=== PATIENT | female | born 1945 | race Hispanic/Latino ===

== ENCOUNTER 2016-10-04 06:54 | Day surgery (SDC) | payer MEDICARE, BC ==
[2016-09-26 09:28] VITALS: BMI 25.8
[2016-10-04] MEDS ORDERED: Propofol 10 mg/ml Inj (20 ML) ONE (08:59)
[2016-10-04] MEDS ORDERED: Lidocaine 2% Inj (20ml) ONE (08:59)
[2016-10-04] MEDS ORDERED: Sodium Chloride 0.9% 1,000 ML IV SCH (10:15)
[2016-10-04 11:06] VITALS: BP 133/58; PULSE 57; RESP 18; TEMP 97.7; O2SAT 95
== END 2016-10-04 12:05 | disposition home or self-care (01) ==
LOC: ENDO 06:54
PROVIDERS: ATTEND Internal Medicine Gastroenterology
DX: K51.90 Ulcerative colitis, unspecified, without complications (principal); K22.70 Barrett's esophagus without dysplasia; E78.5 Hyperlipidemia, unspecified; I10 Essential (primary) hypertension; K63.5 Polyp of colon; K29.50 Unspecified chronic gastritis without bleeding; K31.7 Polyp of stomach and duodenum; K44.9 Diaphragmatic hernia without obstruction or gangrene; K57.30 Diverticulosis of large intestine without perforation or abscess without bleeding; K64.8 Other hemorrhoids
CPT/HCPCS: 43239; 45380; 88305; 88312; 88342; J2704; J3010; J7040 ×2

== ENCOUNTER 2018-04-03 09:03 | Day surgery (SDC) | payer MEDICARE, BC ==
[2018-03-31 14:00] VITALS: BMI 27.6
[2018-04-03] MEDS ORDERED: Propofol 10 mg/ml Inj (20 ML) ONE (11:48)
[2018-04-03] MEDS ORDERED: Etomidate 20 mg/10ml Inj IV ONE (11:50)
[2018-04-03] MEDS ORDERED: Sodium Chloride 0.9% 1,000 ML IV SCH (12:45)
[2018-04-03 14:13] VITALS: BP 134/78; PULSE 61; RESP 16; TEMP 97.9; O2SAT 99
== END 2018-04-03 14:27 | disposition home or self-care (01) ==
LOC: ENDO 09:03
PROVIDERS: ATTEND Internal Medicine Gastroenterology
DX: K51.90 Ulcerative colitis, unspecified, without complications (principal); K63.89 Other specified diseases of intestine; K64.8 Other hemorrhoids; K31.7 Polyp of stomach and duodenum; K22.70 Barrett's esophagus without dysplasia; K44.9 Diaphragmatic hernia without obstruction or gangrene; I10 Essential (primary) hypertension
CPT/HCPCS: 43239; 45380; 88305; 88312; 88342; J2001; J2704; J3010; J7030; J7040

== ENCOUNTER 2018-07-13 12:11 | Observation (INO) | payer MEDICARE, BC ==
[2018-07-13 12:29] VITALS: BMI 25.0
[2018-07-13] MEDS ORDERED: Sodium Chloride 0.9% 1,000 ML IV STA (12:49)
--- NOTE | 2018-07-13 13:01 | ED PDOC ---
Arrival/HPI - General Time Seen by Provider: 07/13/18 12:32 Historian: Patient - History of Present Illness Narrative History of Present Illness (Text): 07/13/18 12:28 73 year old female, with past medical history of hypertension, hyperlipidemia, and CAD s/p cardiac catheterization, presents to the ED for evaluation of cough and sinus congestion since 2 days. Patient informs sick contact with who presented similar symptoms. Patient reports visiting [facility] for the presented symptoms, where she was made aware of possible A-fib and was asked come to [facility] ED for further evaluation. Patient currently informs mild palpitations but denies any chest pain or shortness of breath. Patient denies any other associated somatic complaints. Patient denies any fevers, chills, headache, dizziness, abdominal pain, nausea, vomiting, diarrhea, back pain, neck pain, or any other complaints. Patient denies any recent travel. PMD: Dr. Vogel Tire Specialist: Dr. Gaona Time/Duration: < week Symptom Onset: Gradual Symptom Course: Unchanged Activities at Onset: Light Context: Other (Referred by [facility]) Past Medical History - Provider Review Nursing Documentation Reviewed: Yes - Infectious Disease Hx of Infectious Diseases: None - Tetanus Immunization Tetanus Immunization: Unknown - Cardiac Hx Pacemaker: No - Pulmonary Hx Respiratory Disorders: No Hx Asthma: No Hx Bronchitis: No Hx Chronic Obstructive Pulmonary Disease (COPD): No Hx Emphysema: No Hx Pneumonia: No Hx Respiratory Aspiration: No Hx Respiratory Tract Infection: No Hx Sleep Apnea: No Hx Tuberculosis: No - Neurological Hx Paralysis: No - HEENT Hx HEENT Disorder: No Hx Blind: No Hx Cataracts: No Hx Deafness: No Hx Difficulty Chewing: No Hx Epistaxis: No Hx Glaucoma: No Hx Macular Degeneration: No - Renal Hx Renal Disorder: No Hx Dialysis: No Hx Kidney Stones: No Hx Neurogenic Bladder: No Hx Pyelonephritis: No Hx Renal Cancer: No Hx Renal Failure: No - Endocrine/Metabolic Hx Endocrine Disorders: No Hx Adrenal Cancer: No Hx Diabetes Insipidus: No Hx Diabetes Mellitus Type 1: No Hx Diabetes Mellitus Type 2: No Hx Hyperthyroidism: No Hx Hypothyroidism: No Hx Systemic Lupus Erythematosus: No - Hematological/Oncological Hx Blood Transfusions: Yes Hx Blood Transfusion Reaction: No - Integumentary Hx Dermatological Disorder: No Hx Basal Cell Carcinoma: No Hx Eczema: No Hx Melanoma: No Hx Psoriasis: No Hx Squamous Cell Carcinoma: No - Musculoskeletal/Rheumatological Hx Musculoskeletal Disorders: No (RHEUMATOID ARTHRITIS) - Gastrointestinal Hx Colitis: Yes (Ulcerative Colitis) Hx Constipation: Yes Hx Gastroesophageal Reflux: Yes - Genitourinary/Gynecological Hx Genitourinary Disorders: No Hx Hematuria: No Hx Incontinence: No Hx Sexually Transmitted Diseases: No Hx Urinary Tract Infection: No - Psychiatric Hx Emotional Abuse: No Hx Physical Abuse: No Hx Substance Use: No - Surgical History Hx Hysterectomy: Yes (1990) Hx Orthopedic Surgery: Yes (ORIF of right wrist, 2009) Other/Comment: 05/17/14 left hip hemiarthroplasty - Anesthesia Hx Anesthesia Reactions: No Hx Malignant Hyperthermia: No - Suicidal Assessment Feels Threatened In Home Enviroment: No Family/Social History - Physician Review Nursing Documentation Reviewed: Yes Family/Social History: Unknown Family HX Smoking Status: Never Smoked Hx Alcohol Use: No Hx Substance Use: No Hx Substance Use Treatment: No Allergies/Home Meds Allergies/Adverse Reactions: Allergies Penicillins Allergy (Verified 06/03/16 09:30) RASH Sulfa (Sulfonamide Antibiotics) Allergy (Verified 06/03/16 09:30) ANGIOEDEMA Home Medications: Home Meds Medication Instructions Recorded Confirmed RX: Aspirin [Ecotrin] 81 mg PO DAILY 05/31/16 07/14/18 RX: Atenolol [Tenormin] 25 mg PO DAILY 05/31/16 07/14/18 RX: Cholecalciferol (Vitamin D3) 2,000 unit PO DAILY 05/31/16 07/14/18 [Vitamin D3] RX: Folic Acid 1 mg PO DAILY 05/31/16 07/14/18 RX: Losartan [Cozaar] 50 mg PO DAILY 05/31/16 07/14/18 RX: Methotrexate 4 tab PO QWK 05/31/16 07/13/18 RX: Multivitamin [Multivitamins] 1 each PO DAILY 05/31/16 07/14/18 RX: Omeprazole 20 mg PO DAILY 05/31/16 07/14/18 RX: Cyanocobalamin [Vitamin B12 1,000 mcg PO DAILY 03/31/18 07/14/18 1000 mcg Tab] RX: Rosuvastatin Calcium [Crestor] 5 mg PO DAILY 03/31/18 07/13/18 Review of Systems - Physician Review All systems were reviewed & negative as marked: Yes - Review of Systems Constitutional: absent: Fevers ENT: Sinus Congestion Respiratory: Cough. absent: SOB Cardiovascular: Palpitations. absent: Chest Pain, BURRELL Gastrointestinal: absent: Abdominal Pain, Diarrhea, Nausea, Vomiting Genitourinary Female: absent: Dysuria, Hematuria Musculoskeletal: absent: Back Pain, Neck Pain Skin: absent: Rash Neurological: absent: Headache, Dizziness Physical Exam Vital Signs Reviewed: Yes Vital Signs Temp Pulse Resp BP Pulse Ox 07/13/18 12:28 98.4 F 109 H 18 182/109 H 98 Temperature: Afebrile Blood Pressure: Hypertensive Pulse: Tachycardic Respiratory Rate: Normal Appearance: Positive for: Well-Appearing, Non-Toxic, Comfortable Pain Distress: None Mental Status: Positive for: Alert and Oriented X 3 - Systems Exam Head: Present: Atraumatic, Normocephalic Pupils: Present: PERRL Extroacular Muscles: Present: EOMI Conjunctiva: Present: Normal Respiratory/Chest: Present: Clear to Auscultation, Good Air Exchange. No: Respiratory Distress, Accessory Muscle Use Cardiovascular: Present: Normal S1, S2, Irregular Rhythm (Irregularly irregular rhythm), Tachycardic. No: Murmurs Abdomen: No: Tenderness, Distention, Peritoneal Signs Upper Extremity: Present: Normal Inspection. No: Cyanosis, Edema Lower Extremity: Present: Normal Inspection. No: Edema Neurological: Present: GCS=15, CN II-XII Intact, Speech Normal Skin: Present: Warm, Dry, Normal Color. No: Rashes Psychiatric: Present: Alert, Oriented x 3, Normal Insight, Normal Concentration Medical Decision Making ED Course and Treatment: 07/13/18 12:48 Impression: 73 year old female presents to the ED for evaluation of cough, sinus congestion and palpitations. Plan: -- EKG -- Labs -- Chest X-ray -- IV Fluids -- Reassess and disposition Prior Visits: Notes and results from previous visits were reviewed. Progress Notes: 07/13/18 13:00 EKG: Ordered, reviewed, and independently interpreted the EKG. Rate : 109 BPM Rhythm : Sinus Tachycardia Interpretation : No ST-segment elevations, frequent PACs, non-specific ST/T wave changes. 07/13/18 15:08 Vital signs improved with blood pressure of 155/77 and HR of 63. Labs reviewed, shows elevated BNP at 1530. Patient denies any fever. Patient will be admitted to the hospital for observation. Patient is aware and agrees with plan. Discussed case with Dr. Layne, who is aware and agrees with ED management plan, accepts patient under his service. 07/13/18 16:07 Chest X-ray reviewed by radiologist, shows no active disease. - RAD Interpretation Radiology Orders: 07/13/18 12:49 CHEST PORTABLE [RAD] Stat Manager Technical Sales: Radiologist - EKG Interpretation Interpreted by ED Physician: Yes Type: 12 lead EKG - Medication Orders Current Medication Orders: Sodium Chloride (Sodium Chloride 0.9%) 1,000 mls @ 999 mls/hr IV .Q1H1M STA Stop: 07/13/18 13:49 - Scribe Statement The provider has reviewed the documentation as recorded by the Scribe Ramonita Broussard. All medical record entries made by the Scribe were at my direction and personally dictated by me. I have reviewed the chart and agree that the record accurately reflects my personal performance of the history, physical exam, medical decision making, and the department course for this patient. I have also personally directed, reviewed, and agree with the discharge instructions and disposition. Disposition/Present on Arrival - Present on Arrival Any Indicators Present on Arrival: No History of DVT/PE: No History of Uncontrolled Diabetes: No Urinary Catheter: No History Surgical Site Infection Following: None - Disposition Have Diagnosis and Disposition been Completed?: Yes Diagnosis: Heart palpitations, Irregular cardiac rhythm Disposition: HOSPITALIZED Disposition Time: 15:08 Patient Plan: Admission, Telemetry Condition: GOOD
[2018-07-13 13:24] LABS: BASO # 0.04 K/mm3 (0.0-2.0); BASO % 0.7 % (0.0-3.0); EOS # 0.1 (0.0-0.7); EOS % 1.5 % (1.5-5.0); GRAN # 4.25 (1.4-6.5); GRAN % 72.8 % (50.0-68.0); HEMOGLOBIN 12.2 g/dL (12.0-16.0); LYMPH # 0.9 (1.2-3.4); LYMPH % 15.6 % (22.0-35.0); MEAN CELL VOLUME 93.4 fl (80.0-105.0); MEAN CORPUSCULAR HEMOGLOBIN 29.8 pg (25.0-35.0); MEAN CORPUSCULAR HGB CONC 31.9 g/dl (31.0-37.0); MEAN PLATELET VOLUME 9.7 fl (7.0-11.0); MONO # 0.6 (0.1-0.6); MONO % 9.4 % (1.0-6.0); RBC 4.1 10^6/uL (3.5-6.1); RED CELL DISTRIBUTION WIDTH 14.7 % (11.5-14.5); WHITE BLOOD COUNT 5.8 10^3/uL (4.5-11.0)
[2018-07-13 13:32] LABS: INR 1.03; PARTIAL THROMBOPLASTIN TIME 28.9 Seconds (25.1-36.5); PROTHROMBIN TIME 11.8 SECONDS (9.4-12.5)
[2018-07-13 13:39] LABS: ALB/GLOB RATIO 1.4 (1.1-1.8); ALBUMIN 4.1 g/dL (3.0-4.8); ALT/SGPT 24 U/L (7-56); AST/SGOT 22 U/L (14-36); BLOOD UREA NITROGEN 14 mg/dL (7-21); CALCIUM 9.3 mg/dL (8.4-10.5); GFR NON-AFRICAN AMERICAN > 60
[2018-07-13 13:51] LABS: B-TYPE NATRIURETIC PEPTIDE 1530 pg/mL (0-450); TROPONIN I < 0.01 ng/mL
--- NOTE | 2018-07-13 14:06 | RAD ---
Date of service: 07/13/2018 HISTORY: palpitations COMPARISON: 05/15/2014 FINDINGS: LUNGS: No active pulmonary disease. PLEURA: No significant pleural effusion identified, no pneumothorax apparent. CARDIOVASCULAR: No aortic atherosclerotic calcification present. Normal cardiac size. No pulmonary vascular congestion. OSSEOUS STRUCTURES: No significant abnormalities. VISUALIZED UPPER ABDOMEN: Normal. OTHER FINDINGS: None. IMPRESSION: No active disease.
--- NOTE | 2018-07-13 16:01 | CP.PCM.HP ---
<Lois Jeter - Last Filed: 07/13/18 16:13> History of Present Illness - History of Present Illness History of Present Illness: Internal Medicine H&P for Dr. Schneider Patient si a 73 yr old female with past medical history of HTN, HLD, CAD s/p cath, GERD, Tony's esophagus, RA and UC (in remission) who presents to [facility] after being referred from urgent care for Afib. patient had gone to urgent care for cough/cold/congestion symptoms x 2 days. Patient states she has experienced fever close to 101, congestion, SARKAR, rhinorrhea and nonproductive cough. She denies any sore throat, ear pain, Chest pain, SOB, abdominal pain, diarrhea, constipation, dysuria and extremity pain/ weakness. Last endoscopy and colonoscopy in March normal as per patient. Last Echo unknown PMH: HTN, HLD, CAD, RA, GERD, UC PSH: right wrist surgerym left hip replacement Social:denies smoking, etoh and drugs ALL: PCN, sulfa Family Hx: Father; lung Cancer, mother breast cancer Home medications: Omeprazole 20 mg daily, Atenolol 25 mg daily, Losartan 50 mg daily, Crestor 5 mg Daily, ASA 81 mg, Vit D3, Folic acid 1 mg, B12, Methotrexate 10 mg once weekly on Sundays Slab Lifting Supervisor : Candelaria GI: Papi Present on Admission - Present on Admission Any Indicators Present on Admission: No Review of Systems - Review of Systems All systems: reviewed and no additional remarkable complaints except (as per HPI) Past Patient History - Infectious Disease Hx of Infectious Diseases: None - Tetanus Immunizations Tetanus Immunization: Unknown - Past Medical History & Family History Past Medical History?: Yes - Past Social History Smoking Status: Never Smoked - CARDIAC Hx Pacemaker: No - PULMONARY Hx Respiratory Disorders: No Hx Asthma: No Hx Bronchitis: No Hx Chronic Obstructive Pulmonary Disease (COPD): No Hx Emphysema: No Hx Pneumonia: No Hx Respiratory Aspiration: No Hx Respiratory Tract Infection: No Hx Sleep Apnea: No Hx Tuberculosis: No - NEUROLOGICAL Hx Paralysis: No - HEENT Hx HEENT Problems: No Hx Blind: No Hx Cataracts: No Hx Deafness: No Hx Difficulty Chewing: No Hx Epistaxis: No Hx Glaucoma: No Hx Macular Degeneration: No - RENAL Hx Chronic Kidney Disease: No Hx Dialysis: No Hx Kidney Stones: No Hx Neurogenic Bladder: No Hx Pyelonephritis: No Hx Renal (Kidney) Cancer: No Hx Renal Failure: No - ENDOCRINE/METABOLIC Hx Endocrine Disorders: No Hx Adrenal Cancer: No Hx Diabetes Insipidus: No Hx Diabetes Mellitus Type 1: No Hx Diabetes Mellitus Type 2: No Hx Hyperthyroidism: No Hx Hypothyroidism: No Hx Systemic Lupus Erythematosus: No - HEMATOLOGICAL/ONCOLOGICAL Hx Blood Transfusions: Yes Hx Blood Transfusion Reaction: No - INTEGUMENTARY Hx Dermatological Problems: No Hx Basil Cell: No Hx Eczema: No Hx Melanoma: No Hx Psoriasis: No Hx Squamous Cell: No - MUSCULOSKELETAL/RHEUMATOLOGICAL Hx Musculoskeletal Disorders: No (RHEUMATOID ARTHRITIS) - GASTROINTESTINAL Hx Colitis: Yes (Ulcerative Colitis) Hx Constipation: Yes Hx Gastroesophageal Reflux: Yes - GENITOURINARY/GYNECOLOGICAL Hx Genitourinary Disorders: No Hx Hematuria: No Hx Incontinence: No Hx Sexually Transmitted Disorders: No Hx Urinary Tract Infection: No - PSYCHIATRIC Hx Emotional Abuse: No Hx Physical Abuse: No Hx Substance Use: No - SURGICAL HISTORY Hx Hysterectomy: Yes (1990) Hx Orthopedic Surgery: Yes (ORIF of right wrist, 2009) Other/Comment: 05/17/14 left hip hemiarthroplasty - ANESTHESIA Hx Anesthesia Reactions: No Hx Malignant Hyperthermia: No Meds Allergies/Adverse Reactions: Allergies Allergy/AdvReac Type Severity Reaction Status Date / Time Penicillins Allergy RASH Verified 06/03/16 09:30 Sulfa (Sulfonamide Allergy ANGIOEDEMA Verified 06/03/16 09:30 Antibiotics) Physical Exam - Constitutional Appears: Well, Non-toxic, No Acute Distress - Head Exam Head Exam: ATRAUMATIC, NORMOCEPHALIC - Eye Exam Eye Exam: EOMI - ENT Exam ENT Exam: Mucous Membranes Moist - Respiratory Exam Respiratory Exam: Clear to Auscultation Bilateral, NORMAL BREATHING PATTERN. absent: Accessory Muscle Use, Respiratory Distress - Cardiovascular Exam Cardiovascular Exam: REGULAR RHYTHM. absent: Tachycardia, Irregular Rhythm - GI/Abdominal Exam GI & Abdominal Exam: Soft. absent: Distended, Guarding, Rebound, Rigid, Tenderness - Extremities Exam Extremities exam: Negative for: calf tenderness, pedal edema - Neurological Exam Neurological exam: Alert, Oriented x3 - Psychiatric Exam Psychiatric exam: Normal Affect, Normal Mood - Skin Skin Exam: Dry, Intact, Normal Color, Warm Results - Vital Signs Recent Vital Signs: Last Vital Signs Temp 98.4 F 07/13/18 12:28 Pulse 109 H 07/13/18 12:28 Resp 16 07/13/18 13:40 BP 155/77 H 07/13/18 13:40 Pulse Ox 98 07/13/18 13:40 - Labs Result Diagrams: 07/13/18 13:00 07/13/18 13:00 Labs: Laboratory Results - last 24 hr 07/13/18 07/13/18 07/13/18 13:00 13:00 13:00 WBC 5.8 RBC 4.10 Hgb 12.2 Hct 38.3 MCV 93.4 D MCH 29.8 MCHC 31.9 RDW 14.7 H Plt Count 192 MPV 9.7 Gran % 72.8 H Lymph % (Auto) 15.6 L Cross % (Auto) 9.4 H Eos % (Auto) 1.5 Baso % (Auto) 0.7 Gran # 4.25 Lymph # (Auto) 0.9 L Cross # (Auto) 0.6 Eos # (Auto) 0.1 Baso # (Auto) 0.04 PT 11.8 INR 1.03 APTT 28.9 Sodium 135 Potassium 4.2 Chloride 103 Carbon Dioxide 26 Anion Gap 11 BUN 14 Creatinine 0.8 Est GFR ( Amer) > 60 Est GFR (Non-Af Amer) > 60 Random Glucose 95 Calcium 9.3 Magnesium 1.9 Total Bilirubin 0.6 AST 22 ALT 24 Alkaline Phosphatase 80 Lactate Dehydrogenase 451 Total Creatine Kinase 83 Troponin I < 0.01 NT-Pro-B Natriuret Pep 1530 H Total Protein 7.1 Albumin 4.1 Globulin 3.0 Albumin/Globulin Ratio 1.4 TSH 3rd Generation 07/13/18 13:00 WBC RBC Hgb Hct MCV MCH MCHC RDW Plt Count MPV Gran % Lymph % (Auto) Cross % (Auto) Eos % (Auto) Baso % (Auto) Gran # Lymph # (Auto) Cross # (Auto) Eos # (Auto) Baso # (Auto) PT INR APTT Sodium Potassium Chloride Carbon Dioxide Anion Gap BUN Creatinine Est GFR ( Amer) Est GFR (Non-Af Amer) Random Glucose Calcium Magnesium Total Bilirubin AST ALT Alkaline Phosphatase Lactate Dehydrogenase Total Creatine Kinase Troponin I NT-Pro-B Natriuret Pep Total Protein Albumin Globulin Albumin/Globulin Ratio TSH 3rd Generation 1.75 Assessment & Plan - Assessment and Plan (Free Text) Assessment: 73 yr old female admitted for abservation after episode of afib at urgent care, and current cough/congestion; CXR negative for pneumonia Plan: Afib - irregular rhythm on EKG but no Afib - elevated BNP possibly 2/2 afib - Consult Cardiology, Dr. Gaona, recs appreciated - Troponins x 3 will f/u - repeat EKG in AM - admit to tele Cough/ Congestion - Procal, will f/u - ocean mist/ saline nasal spray PRN - flu swab, will f/u - no leukocytosis of fever at this time will repeat CBC in am HTN - continue home atenolol and losartan with holding parameters - will continue to monitor HLD - c/w home lipitor - lipid panel, will f/u CAD - no CP at this time - trops d/t afib - c/w home ASA - cardiology consulted recs appreciated GERD - c/w home omeprazole - will continue to monitor PPX: on omeprazole at home, SCD, lovenox Patient seen and examined with Dr. Danilo Jeter, PGY 1 - Date & Time Date: 07/13/18 Time: 15:35 Decision To Admit - Pt Status Changed To: Hospital Disposition Of: Observation - . Bed Request Type: Telemetry Admitting Physician: Noelle Schneider <Noelle Schneider - Last Filed: 07/14/18 07:33> Results - Vital Signs Recent Vital Signs: Last Vital Signs Temp 98.9 F 07/14/18 05:58 Pulse 77 07/14/18 05:58 Resp 20 07/14/18 05:58 BP 145/78 07/14/18 05:58 Pulse Ox 96 07/14/18 05:58 - Labs Result Diagrams: 07/14/18 05:00 07/13/18 13:00 Labs: Laboratory Results - last 24 hr 07/13/18 07/13/18 07/13/18 13:00 13:00 13:00 WBC 5.8 RBC 4.10 Hgb 12.2 Hct 38.3 MCV 93.4 D MCH 29.8 MCHC 31.9 RDW 14.7 H Plt Count 192 MPV 9.7 Gran % 72.8 H Lymph % (Auto) 15.6 L Cross % (Auto) 9.4 H Eos % (Auto) 1.5 Baso % (Auto) 0.7 Gran # 4.25 Lymph # (Auto) 0.9 L Cross # (Auto) 0.6 Eos # (Auto) 0.1 Baso # (Auto) 0.04 PT 11.8 INR 1.03 APTT 28.9 Sodium 135 Potassium 4.2 Chloride 103 Carbon Dioxide 26 Anion Gap 11 BUN 14 Creatinine 0.8 Est GFR ( Amer) > 60 Est GFR (Non-Af Amer) > 60 Random Glucose 95 Calcium 9.3 Magnesium 1.9 Total Bilirubin 0.6 AST 22 ALT 24 Alkaline Phosphatase 80 Lactate Dehydrogenase 451 Total Creatine Kinase 83 Troponin I < 0.01 NT-Pro-B Natriuret Pep 1530 H Total Protein 7.1 Albumin 4.1 Globulin 3.0 Albumin/Globulin Ratio 1.4 Triglycerides Cholesterol LDL Cholesterol Direct HDL Cholesterol TSH 3rd Generation Influenza Typ A,B (EIA) 07/13/18 07/13/18 07/13/18 13:00 15:50 19:36 WBC RBC Hgb Hct MCV MCH MCHC RDW Plt Count MPV Gran % Lymph % (Auto) Cross % (Auto) Eos % (Auto) Baso % (Auto) Gran # Lymph # (Auto) Cross # (Auto) Eos # (Auto) Baso # (Auto) PT INR APTT Sodium Potassium Chloride Carbon Dioxide Anion Gap BUN Creatinine Est GFR ( Amer) Est GFR (Non-Af Amer) Random Glucose Calcium Magnesium Total Bilirubin AST ALT Alkaline Phosphatase Lactate Dehydrogenase Total Creatine Kinase Troponin I < 0.01 NT-Pro-B Natriuret Pep Total Protein Albumin Globulin Albumin/Globulin Ratio Triglycerides Cholesterol LDL Cholesterol Direct HDL Cholesterol TSH 3rd Generation 1.75 Influenza Typ A,B (EIA) Negative for flu a/b 07/14/18 07/14/18 07/14/18 01:30 05:00 05:00 WBC 5.9 RBC 3.72 Hgb 11.1 L Hct 34.5 L MCV 92.7 MCH 29.8 MCHC 32.2 RDW 14.6 H Plt Count 204 MPV 10.2 Gran % 68.0 Lymph % (Auto) 20.9 L Cross % (Auto) 9.6 H Eos % (Auto) 1.0 L Baso % (Auto) 0.5 Gran # 3.98 Lymph # (Auto) 1.2 Cross # (Auto) 0.6 Eos # (Auto) 0.1 Baso # (Auto) 0.03 PT INR APTT Sodium Potassium Chloride Carbon Dioxide Anion Gap BUN Creatinine Est GFR ( Amer) Est GFR (Non-Af Amer) Random Glucose Calcium Magnesium Total Bilirubin AST ALT Alkaline Phosphatase Lactate Dehydrogenase Total Creatine Kinase Troponin I 0.02 D NT-Pro-B Natriuret Pep Total Protein Albumin Globulin Albumin/Globulin Ratio Triglycerides 107 Cholesterol 165 LDL Cholesterol Direct 99 HDL Cholesterol 43 TSH 3rd Generation Influenza Typ A,B (EIA) Attending/Attestation - Attestation I have personally seen and examined this patient.: Yes I have fully participated in the care of the patient.: Yes I have reviewed all pertinent clinical information: Yes Notes (Text): Patient seen and examined by me with resident at 7:45AM on 07/13/18. Case including HPI, physical exam, and assessment and plan discussed with resident. Agree with above with following additions/corrections. Patient is a 73-year-old female past medical history significant for hypertension, hyperlipidemia, GERD, coronary artery disease, Hirsch's esophagus, rheumatoid arthritis, and colitis that presented to the emergency room after being sent in from urgent care for atrial fibrillation on an EKG. Patient states that she went to urgent care secondary to nasal/sinus congestion. She states that the congestion started on 07/11/2018. Patient states that at that time she had a fever close to 101 and body aches. She took Tylenol with improvement. She states that she also has had a nonproductive cough. Patient states that the body aches and fever have resolved and she only has nasal congestion now. She states that when she blows her nose the drainage is clear. Patient states that she regularly follows coal passer Dr. Feng. She denies any recent cardiac issues. Patient denies any chest pain or palpitations. No shortness of breath. No nausea, vomiting, or abdominal pain. No fevers or chills. No headaches or dizziness. No lightheadedness or change in vision. No dysuria. No diarrhea or constipation. 12 point review of systems reviewed by me. Please see above HPI, all other systems negative. Family History. Mother passed of metastatic breast cancer. Father passed of lung cancer Physical exam: General: Awake and alert sitting up in bed in no acute distress HEENT: Normocephalic, atraumatic. Extraocular muscles intact, pupils equal and reactive, no scleral icterus. Oropharynx is pink and moist. Positive nasal turbinate edema. No pharyngeal erythema or exudate appreciated. Neck is supple. Hearing grossly intact. Ears and nose externally unremarkable. Cardiovascular: Irregular rhythm.Normal S1 and S2. No murmurs, rubs, or gallops appreciated Pulmonary: Normal respiratory effort. Decreased breath sounds. Mild rales at bases (patient s/p Lasix 80mg). No rhonchi or wheezing appreciated. Gastrointestinal: Soft, nondistended. Nontender. Positive bowel sounds all 4 quadrants. No guarding. Musculoskeletal: Moves all extremities. No calf tenderness. No edema appreciated. No CVA tenderness. Central nervous system: AAOx 3, CN 2-12 grossly intact. 5/5 muscle strength all extremities. Dermatologic: Skin warm and dry. Assessment and plan: Patient is a 73-year-old female past medical history significant for hypertension, hyperlipidemia, GERD, coronary artery disease, Hirsch's esophagus, rheumatoid arthritis, and colitis that presented to the emergency room after being sent in from urgent care for atrial fibrillation on an EKG. 1. Arrhythmia on EKG. Patient asymptomatic. Per patient, she had atrial fibril lation at urgent care. 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 Cardiology consulted, follow up recommendations. BNP elevated at 1530. Chest xray as read by me shows no active disease. Follow up serial troponins. Continue ASA. TSH within normal limits. Monitor on telemetry. 2. URI. Patient afebrile, no leukocytosis. Will given saline nasal spray. Influenza negative. Will hold off on any antibiotics. 3. Essential hypertension. Continue home Cozaar and atenolol 4. CAD. No chest pain. Follow up serial troponins. Continue home Cozaar, atenolol, and ASA. Patient on Crestor at home, placed on lipitor here. 6. Hyperlipidemia. Patient on Crestor at home, placed on lipitor here. 7. GERD/Hirsch's esophagus. Patient on omeprazole at home. Placed on protonix here. 8. GI/DVT prophylaxis. Protonix/Lovenox 9. Patient is a full code. Case discussed in detail with patient regarding current diagnosis and treament plan. All questions answered.
--- NOTE | 2018-07-13 16:55 | CARD ---
APPROVED REPORT Date of service: 07/13/2018 EKG Measurement Heart [id number] <Conclusion> Sinus tachycardia with premature atrial complexes Nonspecific ST abnormality Abnormal ECG
[2018-07-13] MEDS ORDERED: Pneumococcal 23-Valent Vaccine IM ONE (22:28)
[2018-07-13] MEDS ORDERED: Influenza Vaccine 60 mcg/0.5 mL SYR (4YR UP) IM ONE (22:28)
[2018-07-13 23:10] VITALS: RESP 20
[2018-07-14 05:53] LABS: BASO # 0.03 K/mm3 (0.0-2.0); BASO % 0.5 % (0.0-3.0); EOS # 0.1 (0.0-0.7); GRAN # 3.98 (1.4-6.5); HEMOGLOBIN 11.1 g/dL (12.0-16.0); LYMPH # 1.2 (1.2-3.4); LYMPH % 20.9 % (22.0-35.0); MEAN CELL VOLUME 92.7 fl (80.0-105.0); MEAN CORPUSCULAR HEMOGLOBIN 29.8 pg (25.0-35.0); MEAN CORPUSCULAR HGB CONC 32.2 g/dl (31.0-37.0); MEAN PLATELET VOLUME 10.2 fl (7.0-11.0); MONO # 0.6 (0.1-0.6); MONO % 9.6 % (1.0-6.0); RBC 3.72 10^6/uL (3.5-6.1); RED CELL DISTRIBUTION WIDTH 14.6 % (11.5-14.5); WHITE BLOOD COUNT 5.9 10^3/uL (4.5-11.0)
[2018-07-14 05:56] LABS: HDL CHOLESTEROL 43 mg/dL (29-60)
[2018-07-14 05:59] VITALS: O2SAT 96
[2018-07-14 06:06] LABS: LDL CHOLESTEROL 99 mg/dL (0-129)
[2018-07-14 07:59] LABS: ALB/GLOB RATIO 1.3 (1.1-1.8); ALBUMIN 3.9 g/dL (3.0-4.8); ALT/SGPT 25 U/L (7-56); AST/SGOT 35 U/L (14-36); BLOOD UREA NITROGEN 15 mg/dL (7-21); CALCIUM 8.8 mg/dL (8.4-10.5); GFR NON-AFRICAN AMERICAN > 60
[2018-07-14] MEDS ORDERED: Pantoprazole 40 mg EC Tab PO SCH (10:00)
[2018-07-14] MEDS ORDERED: Multivitamin Therapeutic Tab PO SCH (10:00)
[2018-07-14] MEDS ORDERED: Enoxaparin 40 mg Syringe SC SCH (10:00)
[2018-07-14] MEDS ORDERED: Cholecalciferol 1,000 INTLU TAB PO SCH (10:00)
--- NOTE | 2018-07-14 10:33 | CARD ---
APPROVED REPORT Date of service: 07/14/2018 EKG Measurement Heart [id number] ID [id number] <Conclusion> Normal sinus rhythm Normal ECG
[2018-07-14 11:51] VITALS: BP 112/68; PULSE 52; TEMP 97.9
--- NOTE | 2018-07-14 13:01 | CON ---
DATE: 07/14/2018 SUBJECTIVE: The patient is seen lying in bed on telemetry. She went to [facility] yesterday with complaints of nasal congestion. An electrocardiogram was performed there and she was told at that time she had atrial fibrillation and needed to go to the emergency room for admission and treatment. She did feel that she had intermittent palpitations for several prior days associated with her cough and nasal congestion. In the emergency room, she was in sinus rhythm with frequent supraventricular premature beats. Review of the electrocardiogram from [facility] revealed the same. She has no prior history of atrial fibrillation. She does have known coronary artery disease of moderate severity, managed medically. She also has a history of hypertension and hyperlipidemia. PAST MEDICAL HISTORY: Notable for the problems mentioned above. She underwent left hip surgery in 2013 as well as repair of her right wrist fracture in 2009. She does have a history of rheumatoid arthritis. MEDICATIONS AT HOME: Included aspirin, atenolol 25 mg daily, Cozaar 50 mg daily, methotrexate, omeprazole, and Crestor 5 mg daily. ALLERGIES: SHE HAD A REACTION TO PENICILLIN WELL SULFAS IN THE PAST. SOCIAL HISTORY: She does not smoke or drink. She is a retired nurse. FAMILY HISTORY: Both parents from age-related illness. REVIEW OF SYSTEMS: A 10-point review of systems is otherwise unremarkable. PHYSICAL EXAMINATION GENERAL: She is a middle-aged woman, who appears comfortable at present time. VITAL SIGNS: Her blood pressure is 146/76 with pulse 72 and sinus, respirations are 16. She is afebrile. HEENT: Normocephalic, atraumatic. NECK: Supple. No JVD noted. CHEST: Few scattered rhonchi heard. No rales heard. HEART: PMI in normal position. No pathologic murmurs or gallops noted. ABDOMEN: Soft, nontender with normoactive bowel sounds. EXTREMITIES: No clubbing, cyanosis or edema. SKIN: Warm and dry. PSYCHIATRIC: Normal mood and affect.. NEUROLOGICAL: Alert and oriented x3. No gross motor or sensory deficits noted. DIAGNOSTIC DATA: Potassium is 4.3, BUN and creatinine 15 and 0.8. White count is 5.9, hemoglobin and hematocrit 11.1 and 34.5 with platelet count 204,000. Three sets of cardiac enzymes were drawn and are negative. Influenza serology was negative. Electrocardiogram reveals sinus rhythm with frequent supraventricular premature beats and nonspecific ST-T abnormalities. Chest x-ray was unremarkable. IMPRESSION 1. Palpitations secondary to frequent supraventricular premature beats. No evidence of atrial fibrillation has been documented. Ectopy likely precipitated by respiratory illness. 2. Sinusitis/bronchitis. 3. Coronary artery disease, clinically stable. 4. Rest of the problems as noted. RECOMMENDATIONS: From cardiac standpoint, she is stable for discharge home at this time. No further change in the cardiac medications is recommended. There is no role for anticoagulation at this time. She will follow up in the office or for followup as needed. Thank you for this consultation. Pedrito Gaona MD
--- NOTE | 2018-07-14 14:40 | CP.PCM.DIS ---
Provider - Provider Date of Admission: 07/13/18 15:13 Attending physician: Noelle Schneider DO Primary care physician: Raman Vogel MD Consults: 07/13/18 15:25 Cardiology Consult Routine Comment: Consulting Provider: Pedrito Gaona Consulting Physician: Pedrito Gaona Reason for Consult: irregular rhythm; patient known to you 07/13/18 22:13 Social Work Referral Routine Comment: palpitations Physician Instructions: Reason For Exam: eval Time Spent in preparation of Discharge (in minutes): 45 Diagnosis - Discharge Diagnosis (1) Cough Status: Acute (2) Viral URI Status: Acute (3) PVCs (premature ventricular contractions) Status: Acute (4) Heart palpitations Status: Acute Hospital Course - Lab Results Lab Results: Most Recent Lab Values WBC 5.9 10^3/uL (4.5-11.0) 07/14/18 05:00 RBC 3.72 10^6/uL (3.5-6.1) 07/14/18 05:00 Hgb 11.1 g/dL (12.0-16.0) L 07/14/18 05:00 Hct 34.5 % (36.0-48.0) L 07/14/18 05:00 MCV 92.7 fl (80.0-105.0) 07/14/18 05:00 MCH 29.8 pg (25.0-35.0) 07/14/18 05:00 MCHC 32.2 g/dl (31.0-37.0) 07/14/18 05:00 RDW 14.6 % (11.5-14.5) H 07/14/18 05:00 Plt Count 204 10^3/uL (120.0-450.0) 07/14/18 05:00 MPV 10.2 fl (7.0-11.0) 07/14/18 05:00 Gran % 68.0 % (50.0-68.0) 07/14/18 05:00 Lymph % (Auto) 20.9 % (22.0-35.0) L 07/14/18 05:00 [place] % (Auto) 9.6 % (1.0-6.0) H 07/14/18 05:00 Eos % (Auto) 1.0 % (1.5-5.0) L 07/14/18 05:00 Baso % (Auto) 0.5 % (0.0-3.0) 07/14/18 05:00 Gran # 3.98 (1.4-6.5) 07/14/18 05:00 Lymph # (Auto) 1.2 (1.2-3.4) 07/14/18 05:00 [place] # (Auto) 0.6 (0.1-0.6) 07/14/18 05:00 Eos # (Auto) 0.1 (0.0-0.7) 07/14/18 05:00 Baso # (Auto) 0.03 K/mm3 (0.0-2.0) 07/14/18 05:00 PT 11.8 SECONDS (9.4-12.5) 07/13/18 13:00 INR 1.03 07/13/18 13:00 APTT 28.9 Seconds (25.1-36.5) 07/13/18 13:00 Sodium 135 mmol/L (132-148) 07/14/18 06:00 Potassium 4.3 mmol/L (3.6-5.0) 07/14/18 06:00 Chloride 102 mmol/L (98-107) 07/14/18 06:00 Carbon Dioxide 24 mmol/L (21-33) 07/14/18 06:00 Anion Gap 14 (10-20) 07/14/18 06:00 BUN 15 mg/dL (7-21) 07/14/18 06:00 Creatinine 0.8 mg/dl (0.7-1.2) 07/14/18 06:00 Est GFR ( Amer) > 60 07/14/18 06:00 Est GFR (Non-Af Amer) > 60 07/14/18 06:00 Random Glucose 82 mg/dL (70-110) 07/14/18 06:00 Calcium 8.8 mg/dL (8.4-10.5) 07/14/18 06:00 Magnesium 1.9 mg/dL (1.7-2.2) 07/13/18 13:00 Total Bilirubin 0.6 mg/dL (0.2-1.3) 07/14/18 06:00 AST 35 U/L (14-36) 07/14/18 06:00 ALT 25 U/L (7-56) 07/14/18 06:00 Alkaline Phosphatase 67 U/L (38-126) 07/14/18 06:00 Lactate Dehydrogenase 451 U/L (333-699) 07/13/18 13:00 Total Creatine Kinase 83 U/L (35-230) 07/13/18 13:00 Troponin I 0.02 ng/mL D 07/14/18 01:30 NT-Pro-B Natriuret Pep 1530 pg/mL (0-450) H 07/13/18 13:00 Total Protein 6.9 g/dL (5.8-8.3) 07/14/18 06:00 Albumin 3.9 g/dL (3.0-4.8) 07/14/18 06:00 Globulin 3.0 gm/dL 07/14/18 06:00 Albumin/Globulin Ratio 1.3 (1.1-1.8) 07/14/18 06:00 Triglycerides 107 mg/dL (35-160) 07/14/18 05:00 Cholesterol 165 mg/dL (130-200) 07/14/18 05:00 LDL Cholesterol Direct 99 mg/dL (0-129) 07/14/18 05:00 HDL Cholesterol 43 mg/dL (29-60) 07/14/18 05:00 TSH 3rd Generation 1.75 mIU/mL (0.46-4.68) 07/13/18 13:00 Influenza Typ A,B (EIA) Negative for flu a/b (NEGATIVE) 07/13/18 15:50 - Hospital Course Hospital Course: HPI at time of admission: "73 yr old female with past medical history of HTN, HLD, CAD s/p cath, GERD, Hirsch's esophagus, RA and UC (in remission) who presents to [facility] after being referred from urgent care for Afib. patient had gone to urgent care for cough/cold/congestion symptoms x 2 days. Patient states she has experienced fever close to 101, congestion, SARKAR, rhinorrhea and nonproductive cough. She denies any sore throat, ear pain, Chest pain, SOB, abdominal pain, diarrhea, constipation, dysuria and extremity pain/ weakness. Last endoscopy and colonoscopy in March normal as per patient. Last Echo unknown." Hospital Course: Pertinent imaging: EKG 07/13: sinus tachy with premature atrial complexes EKG 07/14: normal sinus rhythm CXR 07/13: no active disease Pt was admitted for observation of irregular rhythm, likely 2/[address] Gaona (Cardio) was consulted, who recommended outpatient f/u for further work-up of irregular rhythm/palpitations. Trops neg x3. Pt was also c/o cold-like symptoms, likely 2/2 viral URI, pt instructed to use supportive measures. Given script of Flonase to c/w outpatient as needed for nasal congestion. Pt was discharged to home in stable condition on 07/14/18. Instructed to f/u with PMD Dr. Vogel within 3-5 days of discharge. Instructed to resume home medications as prescribed. For further details of hospitalization, please refer to hospital EMR. Discharge Exam - Head Exam Head Exam: ATRAUMATIC, NORMOCEPHALIC - Eye Exam Eye Exam: EOMI, Normal appearance, PERRL - ENT Exam ENT Exam: Mucous Membranes Moist - Respiratory Exam Respiratory Exam: Clear to PA & Lateral, NORMAL BREATHING PATTERN, UNREMARKABLE. absent: Rales, Rhonchi, Wheezes - Cardiovascular Exam Cardiovascular Exam: REGULAR RHYTHM, +S1, +S2. absent: Gallop, Rubs, Systolic Murmur - GI/Abdominal Exam GI & Abdominal Exam: Normal Bowel Sounds, Soft, Unremarkable. absent: Distended, Tenderness - Extremities Exam Extremities exam: full ROM, normal capillary refill, normal inspection, pedal pulses present - Neurological Exam Neurological exam: Alert, CN II-XII Intact, Normal Gait, Oriented x3, Reflexes Normal - Psychiatric Exam Psychiatric exam: Normal Affect, Normal Mood - Skin Skin Exam: Dry, Intact, Normal Color, Warm Discharge Plan - Discharge Medications Prescriptions: Fluticasone Nasal [Flonase] 1 actuation NS DAILY #1 spr - Follow Up Plan Condition: GOOD Disposition: HOME/ ROUTINE Instructions: Arrhythmias (DC), High Blood Pressure (DC), Cough, Runny Nose, and the Common Cold (DC), High Cholesterol (DC), Palpitations (DC) Additional Instructions: Please follow-up with your primary care physician (Dr. Vogel) within 3-5 days after hospital discharge. Please follow-up with Dr. Gaona (Cardiology) within 1-2 weeks of hospital disharge for work-up of your palpitations. You will be given prescription for Flonase. Take 1 spray in each nostril daily as needed for nasal congestion symptoms. Can take [id number] remedies as needed for your cold-like symptoms. PLEASE AVOID PSEUDOEPHEDRINE-containing products. Please resume home medications as prescribed. Should your symptoms worsen, please call your primary care physician or report to your nearest emergency department. Referrals: Pedrito Gaona MD [Staff Provider] - Raman Vogel MD [Primary Care Provider] -
[2018-07-20] MEDS ORDERED: METHOTREXATE PO SCH (10:00)
== END 2018-07-14 13:13 | disposition home or self-care (01) ==
LOC: ED 12:11 → ERH 15:13 → 2RSO 18:19
PROVIDERS: ADMIT Internal Medicine; ATTEND Hospitalist
DX: J06.9 Acute upper respiratory infection, unspecified (principal); I49.3 Ventricular premature depolarization; I49.1 Atrial premature depolarization; I48.91 Unspecified atrial fibrillation; I25.10 Atherosclerotic heart disease of native coronary artery without angina pectoris; E78.5 Hyperlipidemia, unspecified; I10 Essential (primary) hypertension; J40 Bronchitis, not specified as acute or chronic; K21.9 Gastro-esophageal reflux disease without esophagitis; K22.70 Barrett's esophagus without dysplasia; K51.90 Ulcerative colitis, unspecified, without complications; M06.9 Rheumatoid arthritis, unspecified; Z79.899 Other long term (current) drug therapy; Z80.1 Family history of malignant neoplasm of trachea, bronchus and lung; Z80.3 Family history of malignant neoplasm of breast; Z87.81 Personal history of (healed) traumatic fracture; Z90.710 Acquired absence of both cervix and uterus; Z96.642 Presence of left artificial hip joint; Z88.0 Allergy status to penicillin; Z88.2 Allergy status to sulfonamides; J32.9 Chronic sinusitis, unspecified
CPT/HCPCS: 36415; 71045; 80053; 80061; 82550; 83615; 83735; 83880; 84145; 84443; 84484; 85025; 85610; 85730; 87804; 93005; 96360; 99285; G0378; J7030

== ENCOUNTER 2018-09-01 08:05 | Outpatient (CLI) | payer MEDICARE, BC | END 2018-09-01 08:06 | disposition home or self-care (01) | LOC: RAD 08:05 | DX: Z12.31 Encounter for screening mammogram for malignant neoplasm of breast (principal) ==